=== PATIENT | female | born 1995 | race Caucasian/White ===

== ENCOUNTER 2019-08-27 15:28 | Emergency (ER) | payer MEDICAID, OTHER ==
[~2019-08-27] VITALS: Ht 160 cm; Wt 45.0 kg
[2019-08-27 16:20] LABS: BASOPHILS % 0.5 % (0.0-2.0); EOSINOPHILS % 2.7 % (0.0-5.0); HEMATOCRIT. 38.7 % (36.0-48.0); HEMOGLOBIN. 13.1 g/dL (12.0-16.0); LYMPHOCYTES % 27.8 % (20.0-50.0); MEAN CORPUSCULAR HEMOGLOBIN 28.6 pg (28.0-32.0); MEAN CORPUSCULAR VOLUME 84.8 fL (81.0-99.0); MEAN PLATELET VOLUME 8.6 fl (7.4-10.4); MONOCYTES % 7.7 % (2.0-8.0); NEUTROPHILS % 61.3 % (40.0-76.0); PLATELET 301 x1000/uL (130-400); RED BLOOD CELL COUNT 4.57 mill/uL (4.2-5.4); RED CELL DISTRIBUTION WIDTH 14.8 % (11.6-14.6)
[2019-08-27 16:25] LABS: CHLORIDE 107 mEq/L (98-107)
[2019-08-27 16:29] LABS: ETHANOL BLOOD < 10 mg/dL
[2019-08-27] MEDS: ONDANSETRON HCL 4MG/2ML INJ IV STA (16:31)
[2019-08-27] MEDS: SODIUM CHLORIDE 0.9% 1,000 ML IV ONE (16:31)
[2019-08-27 16:34] LABS: CREATINE KINASE 73 IU/L (26-192)
[2019-08-27 16:41] LABS: HCG SCREEN NEGATIVE
[2019-08-28 17:30] VITALS: BP 96/72
== END 2019-08-28 18:45 | disposition home or self-care (01) ==
LOC: ER 15:28
DX: R53.1 Weakness (principal); R53.83 Other fatigue; T42.4X1A Poisoning by benzodiazepines, accidental (unintentional), initial encounter; Y92.89 Other specified places as the place of occurrence of the external cause; F41.9 Anxiety disorder, unspecified; J45.909 Unspecified asthma, uncomplicated; G43.909 Migraine, unspecified, not intractable, without status migrainosus
CPT/HCPCS: 36415; 80053; 80307; 80320; 80329; 82550; 83690; 83880; 84443; 84484; 84703; 85025; 93005; 96374; 99285; J2405; J7030; G0480